=== PATIENT | female | born 2005 | race Caucasian/White ===

== ENCOUNTER 2024-04-28 16:40 | Emergency (ER) | payer OTHER ==
[~2024-04-28] VITALS: Ht 170.2 cm; Wt 47.3 kg
[2024-04-28] MEDS ORDERED: Ibuprofen 600 MG TAB PO ONE (17:00)
[2024-04-28] MEDS ORDERED: Acetaminophen 500 MG TAB PO ONE (17:00)
[2024-04-28 20:05] VITALS: TEMP 98.8
[2024-04-28 21:46] VITALS: BP 120/75; PULSE 74
== END 2024-04-28 21:46 | disposition short-term general hospital (02) ==
LOC: COL.ER 16:40
DX: S02.32XA Fracture of orbital floor, left side, initial encounter for closed fracture (principal); Z91.040 Latex allergy status; Y04.0XXA Assault by unarmed brawl or fight, initial encounter; Y92.009 Unspecified place in unspecified non-institutional (private) residence as the place of occurrence of the external cause

== ENCOUNTER 2024-06-10 11:23 | Emergency (ER) | payer OTHER ==
[~2024-06-10] VITALS: Ht 170.2 cm; Wt 50.9 kg
[2024-06-10 11:37] VITALS: TEMP 98.6
[2024-06-10] MEDS ORDERED: NS 1,000 ML IV ONE (12:30)
[2024-06-10] MEDS ORDERED: Ondansetron 4 MG/2 ML VIAL IV ONE (12:30)
[2024-06-10 13:03] LABS: BASO % 0.2 % (0.0-2.0); EOS # 0.1 K/mm3 (0.0-0.7); EOS % 0.4 % (0.0-4.0); GRAN % 88.7 % (42.2-75.2); HEMATOCRIT 40.1 % (35.0-45.0); HEMOGLOBIN 12.7 g/dl (12.0-15.0); LYMPH # 0.7 K/mm3 (1.2-3.4); LYMPH % 5.7 % (20.0-51.0); MEAN CELL VOLUME 86 fl (80.0-95.0); MEAN CORPUSCULAR HEMOGLOBIN 27 pg (26-32); MEAN CORPUSCULAR HGB CONC 32 g/dl (33.0-37.0); MEAN PLATELET VOLUME 11.5 fl (7.4-10.4); MONO # 0.5 K/mm3 (0.1-0.6); MONO % 4.6 % (1.7-9.3); PLATELET COUNT 248 K/mm3 (130-400); RED BLOOD COUNT 4.64 M/mm3 (4.10-5.30); REDCELL DISTRIBUTION WIDTH-CV 13.6 % (11.5-14.5)
[2024-06-10 13:22] LABS: ALBUMIN 4.5 g/dL (3.5-5.0); BILIRUBIN,TOTAL 0.8 mg/dL (0.2-1.2); CREATININE, serum 1.12 mg/dL (0.57-1.11); POTASSIUM 3.8 mEq/L (3.5-4.5); TOTAL PROTEIN 7.4 g/dl (6.2-8.1)
[2024-06-10 13:53] LABS: PH 5.5 (5.0-8.5); URINE APPEARANCE CLEAR (CLEAR/HAZY); URINE BLOOD NEGATIVE (NEGATIVE); URINE COLOR YELLOW (YELLOW); URINE GLUCOSE NEGATIVE (NEGATIVE); URINE KETONE 2+ (NEGATIVE); URINE NITRATE NEGATIVE (NEGATIVE); URINE PROTEIN(semi-quant) TRACE (NEGATIVE)
[2024-06-10 13:56] LABS: TRICYCLIC ANTIDEPRESS URINE NEGATIVE (NEGATIVE)
[2024-06-10 14:10] LABS: COLLECTION METHOD CLEAN CATCH
[2024-06-10] MEDS ORDERED: Iohexol 300 - 100 ML VIAL IV ONE (14:11)
[2024-06-10] MEDS ORDERED: NS 100 ML IV SCH (14:12)
[2024-06-10] MEDS ORDERED: diphenhydrAMINE 50 MG/ML 1 ML VIAL IV ONE (14:15)
[2024-06-10] MEDS ORDERED: LR 1,000 ML IV ONE (14:15)
[2024-06-10] MEDS ORDERED: ZOFRAN 4MG T4 MG/TAB PO (15:16)
[2024-06-10 15:45] VITALS: BP 109/77; PULSE 64
== END 2024-06-10 15:45 | disposition home or self-care (01) ==
LOC: COL.ER 11:23
PROVIDERS: Physician Assistant
DX: R11.2 Nausea with vomiting, unspecified (principal); D72.829 Elevated white blood cell count, unspecified; Z91.040 Latex allergy status
CPT/HCPCS: J1200; J2405; J7030; J7120; Q9967